=== PATIENT | female | born 1995 | race Two or more races ===

== ENCOUNTER → 2024-11-16 | Outpatient (CLI) | payer MEDICAID, SELFPAY ==
--- NOTE | 2024-11-16 08:32 | XR_ITS ---
Examination: PA lateral chest 2 views TECHNIQUE: Upright PA lateral chest 2 views Exam date and time: November 16, 2024 0855 hours INDICATIONS: Coughing one month. FINDINGS: Normal heart size. Lungs are clear. Osseous structures are intact IMPRESSION: No active disease
== END | disposition home or self-care (01) ==
PROVIDERS: PCP Physician Assistant; Referring Provider Physician Assistant; Visit Provider Physician Assistant
DX: R05.9 Cough, unspecified (principal)
CPT/HCPCS: 71046